=== PATIENT | male | born 1975 ===

== ENCOUNTER 2020-11-08 13:27 | Outpatient (REF) | payer SELFPAY ==
--- NOTE | 2020-11-08 15:18 | MHC.AU.CER ---
Cerumen Removal- Binaural Date of Visit: 11/08/20 Medical Conditions: No Conditions of Concern for Cerumen Removal Medications: No Medications of Concern for Cerumen Removal Procedure: Right Ear: Prior to Removal: Clear Canal Left Ear: Unusual Findings: Deeply Impacted Cerumen Prior to Removal: Significant Cerumen Present, Complete Occlusion Outcome of Procedure: Encountered difficulty removing cerumen. Cerumen softening drops used. Other: Some cerumen removed with lighted curette, suction, and cerumen softening drops. Irritation began to occur, so discontinued procedure. Recommendations: Recommendations: Use of cerumen drops, such as Debrox or EarWaxMD. Schedule return for continued cerumen removal after use of drops Diagnosis Code(s): Primary Diagnosis: H61.22 Impacted Cerumen, Left Ear Signature: Provider: Kelly Orr, CCC-A
== END 2020-11-08 13:28 | disposition home or self-care (01) ==
LOC: HO.HAP 13:27
DX: Z13.89 Encounter for screening for other disorder (principal)

== ENCOUNTER 2020-11-22 13:25 | Outpatient (REF) | payer SELFPAY | END 2020-11-22 13:26 | disposition home or self-care (01) | LOC: HO.HAP 13:25 | DX: H61.22 Impacted cerumen, left ear (principal) | CPT/HCPCS: 92700 ==